=== PATIENT | male | born 1970 | race Caucasian/White ===

== ENCOUNTER 2016-12-28 23:40 | Emergency (ER) | payer OTHER ==
[~2016-12-28] VITALS: Ht 175.3 cm; Wt 88.5 kg
--- NOTE | ~2016-12-28 | EKG ---
[address] [employer] [place] [address] ELECTROCARDIOGRAM REPORT Name: MIKAEL PITTMAN Room #: DEP LIANNA Alfonso#: [id number] Admission: 12/28/16 Attend Phys: Discharge: 12/29/16 Date of : 70 Report #: [id number] THIS REPORT FOR: //name// [facility] ED Test Date: 2016-12-29 Test Time: 00:52:53 Pat Name: MIKAEL PITTMAN Department: Room: Gender: M Belt Brander: jcenmanuel : 1970 Requested By: Damien Barnes Order Number: [id number] MD: Ollie Snell Measurements Intervals [place] Rate: 72 P: 71 IA: 159 QRS: 93 QRSD: 103 T: 44 QT: 386 QTc: 423 Interpretive Statements Sinus rhythm Borderline right axis deviation No previous ECG available for comparison Electronically Signed On 12-30-2016 12:41:53 CDT by Ollie Snell [email or web address] <ELECTRONICALLY SIGNED> By: Ollie Snell MD 12/30/16 1241 0052 0052 Ollie Snell MD /JANINE
[2016-12-29 00:43] LABS: HEMATOCRIT 47.7 % (42.0-52.0); HEMOGLOBIN 15.9 gm/dL (14.0-18.0); MCH 28.3 pg (26.0-34.0); MCHC 33.3 g/dL (28.0-37.0); MCV 85.2 fL (80.0-100.0); RBC 5.6 mil/uL (4.50-6.00); RDW 15.1 % (10.5-14.5); WBC 12.1 thou/uL (4.0-11.0)
[2016-12-29 00:51] LABS: ANION GAP 12 mmol/L (7-16); BUN 11 mg/dL (7-18); CHLORIDE 106 mmol/L (98-107); CO2 24 mmol/L (21-32); CREATININE 1.3 mg/dL (0.7-1.3); GLUCOSE 124 mg/dL (74-106); SODIUM 142 mmol/L (136-145)
[2016-12-29 00:59] LABS: TROPONIN-I < 0.04 ng/mL (<0.04-0.07)
[2016-12-29 03:03] VITALS: BP 129/67
[2016-12-29] MEDS ORDERED: PREDNISONE 20 M20 MG PO (03:08)
== END 2016-12-29 03:23 | disposition home or self-care (01) ==
LOC: ER 23:40
PROVIDERS: Emergency Medicine
DX: R21 Rash and other nonspecific skin eruption (principal)